=== PATIENT | female | born 1950 | race American Indian/Alaskan Native ===

== ENCOUNTER 2016-06-24 16:36 | Emergency (ER) | payer MEDICARE ==
[2016-06-24 19:12] LABS: Basophils % (Auto) 0.6 % (0.0-1.8); Eosinophils % (Auto) 3.4 % (0.0-4.3); Hematocrit 36.5 % (30.3-42.9); Hemoglobin 11.9 gm/dl (10.1-14.3); Mean Corpuscular HGB Conc 33 % (30-34); Mean Corpuscular Hemoglobin 30 pg (28-32); Mean Corpuscular Volume 91 fl (79-97); Platelet Count 173 K/mm3 (140-440); Red Blood Count 4.02 M/mm3 (3.65-5.03); Red Cell Distribution Width 15.9 % (13.2-15.2); White Blood Count 5.3 K/mm3 (4.5-11.0)
[2016-06-24 19:17] LABS: Urine Drugs of Abuse Note Disclamer
[2016-06-24 19:26] LABS: Bilirubin,Urine NEG (Negative); Blood,Urine LG (Negative); Ketones,Urine NEG (Negative); Leukocyte Esterase,Urine NEG (Negative); Mucus,Urine FEW /HPF; Nitrite,Urine NEG (Negative); Protein,Urine <15 mg/dL mg/dL (Negative); Urobilinogen,Urine < 2.0 mg/dL (<2.0)
[2016-06-24 19:31] LABS: Anion Gap 18 mmol/L; BUN/Creatinine Ratio 14.44; Blood Urea Nitrogen 13 mg/dL (7-17); Calcium 11.3 mg/dL (8.4-10.2); Carbon Dioxide 23 mmol/L (22-30); Chloride 104.7 mmol/L (98-107); Glucose 101 mg/dL (65-100); Potassium 3.3 mmol/L (3.6-5.0); Sodium 142 mmol/L (137-145)
--- NOTE | 2016-06-24 19:58 | Emergency Department Report ---
ED Psych HPI - General Chief Complaint: Psych Stated Complaint: AMS/AGGRESSION/1013 Time Seen by Provider: 06/24/16 17:56 Source: family Mode of arrival: Ambulatory Limitations: Altered Mental Status - History of Present Illness Initial Comments: 65-year-old female presents to the emergency department for mental evaluation. Per report, the patient has been physically aggressive with other people at the detention. There is no report of combative behavior or attempts to hurt herself. Further history is unable to be obtained from the patient due to her clinical condition. -: unknown History of same: Yes Quality: constant Improves With: none Worsens With: none Associated Symptoms: denies other symptoms Treatments Prior to Arrival: placed on mental he - Related Data Home Medications Medication Instructions Recorded Confirmed Last Taken Aspirin [Aspirin BABY CHEW TAB] 81 mg PO QDAY 06/21/16 06/21/16 06/21/16 Benztropine [Cogentin] 0.5 mg PO BID 06/21/16 06/21/16 06/21/16 Haloperidol [Haldol] 4 mg PO BID 06/21/16 06/21/16 06/21/16 Metoprolol Xl [Metoprolol 50 mg PO QDAY 06/21/16 06/21/16 06/21/16 SUCCINATE ER TAB] Allergies Allergy/AdvReac Type Severity Reaction Status Date / Time Sulfa (Sulfonamide Allergy Hives/RASH Unverified 11/29/14 12:12 Antibiotics) ED Review of Systems ROS: Stated complaint: AMS/AGGRESSION/1013 Other details as noted in HPI Comment: Unobtainable due to pts medical conditions ED Past Medical Hx - Past Medical History Previous Medical History?: Yes Hx Hypertension: Yes Hx Psychiatric Treatment: Yes (schizophrenia) Additional medical history: AMS - Surgical History Past Surgical History?: No - Family History Family history: no significant - Social History Smoking Status: Current Every Day Smoker Substance Use Type: Prescribed - Medications Home Medications: Home Medications Medication Instructions Recorded Confirmed Last Taken Type Aspirin [Aspirin BABY CHEW TAB] 81 mg PO QDAY 06/21/16 06/21/16 06/21/16 History Benztropine [Cogentin] 0.5 mg PO BID 06/21/16 06/21/16 06/21/16 History Haloperidol [Haldol] 4 mg PO BID 06/21/16 06/21/16 06/21/16 History Metoprolol Xl [Metoprolol 50 mg PO QDAY 06/21/16 06/21/16 06/21/16 History SUCCINATE ER TAB] ED Physical Exam - General Limitations: Altered Mental Status General appearance: alert, in no apparent distress - Head Head exam: Present: atraumatic, normocephalic - Eye Eye exam: Present: normal appearance, PERRL, EOMI - ENT ENT exam: Present: normal exam, normal orophraynx, mucous membranes moist - Neck Neck exam: Present: normal inspection, full ROM. Absent: tenderness - Respiratory Respiratory exam: Present: normal lung sounds bilaterally. Absent: respiratory distress - Cardiovascular Cardiovascular Exam: Present: normal rhythm, tachycardia, normal heart sounds - GI/Abdominal GI/Abdominal exam: Present: soft, normal bowel sounds. Absent: distended, tenderness - Extremities Exam Extremities exam: Present: normal inspection, full ROM. Absent: tenderness - Back Exam Back exam: Present: normal inspection, full ROM. Absent: tenderness - Neurological Exam Neurological exam: Present: alert. Absent: motor sensory deficit - Psychiatric Psychiatric exam: Present: agitated, other (patient appears to be responding to internal stimuli. Patient is swatting at things in the air. Patient is not able to answer questions and has difficulty following commands.) - Skin Skin exam: Present: warm, dry, intact ED Course Vital Signs 06/24/16 06/24/16 17:43 18:54 Temperature 97.6 F Pulse Rate 125 H Respiratory 20 16 Rate Blood Pressure 136/93 O2 Sat by Pulse 97 Oximetry - Reevaluation(s) Reevaluation #1: 06/24/16 19:58 Lab results reviewed. Patient has been medically cleared. Form 1013 has been signed and placed on the patient's chart. Patient is awaiting mental health placement. ED Medical Decision Making - Lab Data Result diagrams: 06/24/16 18:49 06/24/16 18:49 Critical care attestation.: If time is entered above; I have spent that time in minutes in the direct care of this critically ill patient, excluding procedure time. ED Disposition Clinical Impression: Schizophrenia Qualifiers: Schizophrenia type: unspecified Qualified Code(s): F20.9 - Schizophrenia, unspecified Disposition: DC/TX PSY HOSP/PSY UNIT Is pt being admited?: No Condition: Stable Referrals: PRIMARY CARE [Primary Care Provider] - 3-5 Days Time of Disposition: 19:58
[2016-06-25 06:28] VITALS: BP 140/92
[2016-06-25] MEDS ORDERED: HALDOL IM ONE (15:07)
[2016-06-25] MEDS ORDERED: BENADRYL IM ONE (15:08)
[2016-06-25] MEDS ORDERED: ATIVAN IM ONE (15:13)
== END 2016-06-25 20:59 ==
LOC: ED 16:36 → EEVIPCON 16:36 → ED 06-25 20:59
DX: F20.9 Schizophrenia, unspecified (principal); I10 Essential (primary) hypertension; F17.200 Nicotine dependence, unspecified, uncomplicated; Z88.2 Allergy status to sulfonamides
CPT/HCPCS: 36415; 80048; 80307; 81001; 85025; 96372; 99285; G0480; J1200; J1630; J2060; 80320

== ENCOUNTER 2016-09-17 21:23 | Emergency (ER) | payer MEDICARE ==
--- NOTE | 2016-09-17 22:16 | Emergency Department Report ---
HPI - General Chief Complaint: Psych Time Seen by Provider: 09/17/16 22:07 - HPI HPI: This is a 66-year-old female who presents to the emergency department by EMS from a personal nursing home with the need for a mental health evaluation. The architectural project manager had been saying that the patient had become belligerent, was refusing to take her medications and has been eloping from the facility. The patient has a history of schizophrenia and hypertension. When asked how the patient got to the emergency department this evening, the patient says that she "drove." When asked her name, she gave other names. Some of the things that she says is unintelligible and the patient has some pressured speech. Just prior to my examination of the patient, the patient took off her diaper filled with feces, throat onto the ground, and started stomping on it. ED Past Medical Hx - Past Medical History Previous Medical History?: Yes Hx Hypertension: Yes Hx Psychiatric Treatment: Yes (schizophrenia) Additional medical history: AMS - Surgical History Past Surgical History?: No - Social History Smoking Status: Unknown if ever smoked - Medications Home Medications: Home Medications Medication Instructions Recorded Confirmed Last Taken Type Unobtainable 09/17/16 09/17/16 Unknown History ED Review of Systems ROS: Stated complaint: MH EVAL/AMS Other details as noted in HPI Comment: Unobtainable due to pts medical conditions Physical Exam - Physical Exam Vital Signs: Vital Signs 09/17/16 22:07 Pulse Rate 65 Respiratory 20 Rate Physical Exam: GENERAL: The patient is well-developed well-nourished. HEENT: Normocephalic. Atraumatic. Extraocular motions are intact. Patient has moist mucous membranes. Pupils equal reactive to light bilaterally. NECK: Supple. Trachea is midline. CHEST/LUNGS: Clear to auscultation. There is no respiratory distress noted. HEART/CARDIOVASCULAR: Regular. There is no tachycardia. There is no gallop rub or murmur. ABDOMEN: Abdomen is soft, nontender. Patient has normal bowel sounds. There is no abdominal distention. SKIN: Skin is warm and dry. NEURO: Patient is awake but unable to assess patient's orientation secondary to her psychosis. Withdraws to painful stimuli. MUSCULOSKELETAL: There is no tenderness or deformity. There is no limitation range of motion. There is no evidence of acute injury. ED Course Vital Signs 09/17/16 22:07 Pulse Rate 65 Respiratory 20 Rate ED Medical Decision Making - Lab Data Result diagrams: 09/17/16 23:13 09/17/16 23:13 - Medical Decision Making 66-year-old female presents from her personal nursing home with need for a psychiatric evaluation as the patient has been altered and aggressive. Patient displays psychosis here. The patient is mostly unintelligible, uncooperative. At one point the patient through a feces filled diaper on the ground and began stomping on it despite ER staff pleas for her to stop. Vital signs stable throughout her ED course. Labs are unremarkable do not show any etiology of the patient's symptoms. She has a history of schizophrenia and this appears to be a psychotic break through. She has been admitted 1013 for this reason. She is medically clear for psychiatric placement. - Differential Diagnosis schizophrenia, schizoaffective, bipolar disorder, depression, substance abu Critical Care Time: No Critical care attestation.: If time is entered above; I have spent that time in minutes in the direct care of this critically ill patient, excluding procedure time. ED Disposition Clinical Impression: Schizophrenia Qualifiers: Schizophrenia type: unspecified Qualified Code(s): F20.9 - Schizophrenia, unspecified Psychosis Qualifiers: Psychosis type: unspecified psychosis type Qualified Code(s): F29 - Unspecified psychosis not due to a substance or known physiological condition Disposition: DC/TX PSY HOSP/PSY UNIT Is pt being admited?: No Condition: Stable Time of Disposition: 00:22
[2016-09-17 22:53] LABS: Urine Drugs of Abuse Note Disclamer
[2016-09-17 23:09] LABS: Bilirubin,Urine NEG (Negative); Blood,Urine SM (Negative); Ketones,Urine NEG (Negative); Leukocyte Esterase,Urine SM (Negative); Nitrite,Urine NEG (Negative); Protein,Urine <15 mg/dL mg/dL (Negative); Urobilinogen,Urine < 2.0 mg/dL (<2.0)
[2016-09-17 23:42] LABS: Basophils % (Auto) 0.6 % (0.0-1.8); Eosinophils % (Auto) 1.6 % (0.0-4.3); Hematocrit 34.7 % (30.3-42.9); Hemoglobin 11.6 gm/dl (10.1-14.3); Mean Corpuscular HGB Conc 33 % (30-34); Mean Corpuscular Hemoglobin 31 pg (28-32); Mean Corpuscular Volume 92 fl (79-97); Platelet Count 193 K/mm3 (140-440); Red Blood Count 3.76 M/mm3 (3.65-5.03); Red Cell Distribution Width 15.4 % (13.2-15.2); White Blood Count 6.4 K/mm3 (4.5-11.0)
[2016-09-17 23:45] LABS: Anion Gap 14 mmol/L; Blood Urea Nitrogen 17 mg/dL (7-17); Calcium 11.7 mg/dL (8.4-10.2); Carbon Dioxide 28 mmol/L (22-30); Chloride 104.7 mmol/L (98-107); Glucose 106 mg/dL (65-100); Potassium 4.1 mmol/L (3.6-5.0); Sodium 143 mmol/L (137-145)
--- NOTE | 2016-09-18 11:38 | Consultation ---
History of Present Illness - Reason for Consult Consult date: 09/18/16 Reason for consult: psychiatric evaluation - Chief Complaint Chief complaint: "I'm a doctor" 66 year old black female seen in the ER for psychiatric evaluation. She was brought to the ER by ambulance from her personal halfway for being increasingly uncooperative and refusing medications. On exam she is tangential, speech is incoherent. She laughs intermittently and then will stare in a threatening manner. She is clearly responding to internal stimuli. She was unable to provided history except to say she has schizophrenia. From the previous records in the ER, she was taking haldol 4mg bid and cogentin. She urinated on the floor following the completion of the interview. Unable to determine additional history. Medications and Allergies Allergies Allergy/AdvReac Type Severity Reaction Status Date / Time Sulfa (Sulfonamide Allergy Hives/RASH Unverified 11/29/14 12:12 Antibiotics) Home Medications Medication Instructions Recorded Confirmed Last Taken Type Unobtainable 09/17/16 09/17/16 Unknown History Past psychiatric history - Past Medical History Past Medical History: other (unk) Past Surgical History: Other (unk) - past Psychiatric treatment and history Psych: Schizophrenia - Social History Social history: other (long-term or personal halfway) Mental Status Exam - Vital signs Last Vital Signs Temp 97.6 F 09/18/16 08:33 Pulse 85 09/18/16 08:33 Resp 16 09/18/16 08:33 BP 143/93 09/18/16 08:33 Pulse Ox 98 09/18/16 08:33 - Exam Orientation: person Affect: agitated (and labile) Mood: congruent with affect Thought content: other (responding to internal stimuli) Thought Process: Tangential, Disorganized Speech: incoherent Concentration: unable to pay attention Motor activity: restless Level of consciousness: alert Interaction: other (indifferent) Results Result Diagrams: 09/17/16 23:13 09/17/16 23:13 Abnormal lab results 09/17/16 09/17/16 09/17/16 Range/Units 23:13 23:13 23:13 RDW 15.4 H (13.2-15.2) % Lymph # 0.9 L (1.2-5.4) K/mm3 Seg Neutrophils % 77.0 H (40.0-70.0) % Glucose 106 H (65-100) mg/dL Calcium 11.7 H (8.4-10.2) mg/dL Salicylates < 0.3 L (2.8-20.0) mg/dL All other labs normal. 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
[2016-09-18] MEDS: HALDOL PO SCH (22:46)
[2016-09-18] MEDS: COGENTIN PO SCH (22:46)
--- NOTE | 2016-09-19 09:21 | Progress Note ---
Subjective - Reason for Consult Consult date: 09/19/16 Reason for consult: Psychiatry Follow-up - Chief Complaint Chief complaint: "I'm a " 66 year old black female seen in the ER for psychiatric evaluation. She was brought to the ER by ambulance from her personal [facility] for being increasingly uncooperative and refusing medications. Today patient is tangential , delusional with pressured speech. I had to redirect patient multiple times, because she would stare at the wall. Once I got her attention, she stated that she is "." During the assessment she mentioned residing at a personal [facility] multiple times. She continues to laughs intermittently per a previous note. Patient is a poor historian at this time. Mental Status Exam - Vital signs Last Vital Signs Temp 98.7 F 09/18/16 20:41 Pulse 84 09/18/16 20:41 Resp 16 09/18/16 20:41 BP 129/77 09/18/16 20:41 Pulse Ox 98 09/18/16 20:41 - Exam Narrative exam: MSE: Appearance: Disheveled, cooperative Behavior: good eye contact Speech: regular rate and tone, pressured Mood: "I am okay now" Affect: elated Thought Process: tangential Thought Content: no gestures of SI/HI's and AVH's, delusional Motor Activity: lying down Cognition: a/o x2 Insight: poor Judgment: poor Assessment and Plan Impression: 66 year old black female seen in the ER for psychiatric evaluation. She was brought to the ER by ambulance from her personal [facility] for being increasingly uncooperative and refusing medications. Today patient is tangential , delusional with pressured speech. I had to redirect patient multiple times, because she would stare at the wall. No gestures of SI/HI's and AVH's. Patient refused her psy medication last night. Recommendation/Plan: Continue 1013 with placement to inpatient psy services. Continue Haldol 5 mg PO HS for psychosis and Cogentin 0.5 mg PO HS for EPS prevention.
[2016-09-19] MEDS: COGENTIN PO SCH (22:57)
[2016-09-19] MEDS: HALDOL PO SCH (22:57)
--- NOTE | 2016-09-20 13:12 | Progress Note ---
Subjective - Reason for Consult Consult date: 09/20/16 Reason for consult: psychiatric follow up - Chief Complaint Chief complaint: "I'm a " 66 year old black female seen in the ER for psychiatric evaluation. She was brought to the ER by ambulance from her personal senior living for being increasingly uncooperative and refusing medications. Staff report no episodes of aggression. She expressed multiple delusions, including being 5 months , being a doctor, and was preoccupied in asking "Are you a advent?" She took haldol/cogentin last night as ordered. 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
[2016-09-20] MEDS: HALDOL PO SCH (22:04)
[2016-09-20] MEDS: COGENTIN PO SCH (22:05)
[2016-09-21 11:42] VITALS: BP 132/86
== END 2016-09-21 11:30 ==
LOC: EEVIPCON 21:23 → ED 21:23
DX: F20.9 Schizophrenia, unspecified (principal); F29 Unspecified psychosis not due to a substance or known physiological condition; I10 Essential (primary) hypertension
CPT/HCPCS: 36415; 80048; 80307; 81001; 85025; 99285; G0480; 80320

== ENCOUNTER 2018-06-08 16:35 | Inpatient (IN) | payer MEDICARE, MEDICAID ==
[2018-06-08] MEDS ORDERED: ATIVAN IM PRN (19:11)
[2018-06-08] MEDS ORDERED: GEODON IM PRN (19:13)
[2018-06-08] MEDS ORDERED: DESYREL PO PRN (19:19)
[2018-06-08] MEDS: COGENTIN PO SCH (21:46)
[2018-06-08] MEDS: HALDOL PO SCH (21:46)
[2018-06-09 01:44] LABS: Calcium 10.5 mg/dL (8.4-10.2)
[2018-06-09] MEDS ORDERED: HABITROL TD SCH (10:00)
[2018-06-09] MEDS ORDERED: AFLURIA QUAD 2018-2019 SYRINGE IM ONE (12:00)
--- NOTE | 2018-06-09 12:45 | History and Physical Report ---
History of Present Illness Date of examination: 06/09/18 Date of admission: 06/08/18 17:01 Chief complaint: AMS History of present illness: Patient is a 67 yo woman [facility] with a history of metastatic left breast cancer, schizophrenia, hypercalcemia and tobacco dependency who initially presented to [facility] ED via police on 06/08/2018 after she was allegedly found wandering around on the street. She tells me that she was going to get cigarettes but is unable to give me any other history without speaking on a tangent. Her thoughts are disorganized. The patient has been seen here in the past secondary to acute psychosis from schizophrenia. She has been admitted to our [facility] unit and Hospitalist were called for Admission Medical H-n-P. PMH: as hpi PSH: unable to obtain due to AMS SH: tobacco smoker FH: unable to obtain due to AMS ROS: unable to obtain due to AMS Medications and Allergies Allergies Allergy/AdvReac Type Severity Reaction Status Date / Time Sulfa (Sulfonamide Allergy Hives/RASH Unverified 11/29/14 12:12 Antibiotics) Home Medications Medication Instructions Recorded Confirmed Last Taken Type Unobtainable 09/17/16 09/17/16 Unknown History Active Meds: Active Medications Benztropine Mesylate (Cogentin) 0.5 mg PO QHS [facility] Last Admin: 06/08/18 21:46 Dose: 0.5 mg Documented by: Haloperidol (Haldol) 5 mg PO QHS [facility] Last Admin: 06/08/18 21:46 Dose: 5 mg Documented by: Lorazepam (Ativan) 0.5 mg IM Q4H PRN PRN Reason: Anxiety Nicotine (Habitrol) 14 mg TD QDAY [facility] Trazodone HCl (Desyrel) 50 mg PO QHS PRN PRN Reason: Insomnia Ziprasidone (Geodon) 20 mg IM Q6H PRN PRN Reason: Agitation Exam - Physical Exam Narrative exam: Gen: WDWN, NAD, Awake, Alert, Orientated x 1 HEENT: NCAT, EOMI, PERRL, OP Clear with no teeth Neck: supple, adenopathy, no thyromegaly, no JVD CVS/Heart: RRR, normal S1S2, pulses present bilaterally Chest/Lungs: diminished bs bilateral, Symmetrical chest expansion, good air entry bilaterally GI/Abdomen: soft, NTND, good bowel sounds, no guarding or rebound /Bladder: no suprapubic tenderness, no CVA or paraspinal tenderness Extermity/Skin: no c/c/e, no obvious rash MSK: FROM x 4 Neuro: CN 2-12 grossly intact, no new focal deficits Psych: calm but confused, tangential and Disorganized - Constitutional Vitals: Temp Pulse Resp BP Pulse Ox 98.6 F 84 20 127/74 97 06/09/18 05:54 06/09/18 05:54 06/09/18 05:54 06/09/18 05:54 06/09/18 05:54 Results - Labs CBC & Chem 7: 06/09/18 00:45 Labs: Abnormal lab results 06/09/18 Range/Units 00:45 BUN 22 H (7-17) mg/dL Glucose 105 H (65-100) mg/dL Calcium 10.5 H (8.4-10.2) mg/dL Assessment and Plan Medical H-n-P Patient is a 67 yo woman from a [facility] with a history of metastatic left breast cancer, schizophrenia, hypercalcemia and tobacco dependency who initially presented to [facility] ED via police on 06/08/2018 after she was allegedly found wandering around on the street. She tells me that she was going to get cigarettes but is unable to give me any other history without speaking on a tangent. Her thoughts are disorganized. The patient has been seen here in the past secondary to acute psychosis from schizophrenia. She has been admitted to our [facility] unit and Hospitalist were called for Admission Medical H-n-P. * 11/29/2014 2D ECHO Conclusion: Well-preserved left ventricular systolic function, ejection fraction 55%, at least mild concentric LVH, moderate MR, mild to moderated AR, mild TR. * 11/30/[address] neck, chest, abd and pelvis and PET scan per Dr. MENDEZ ([place]): Multifocal Left Breast Cancer with suspicious left a xillary, left subpectoral and left superior mediastinal lymph node, small bilateral pleural effusion but no evidence for pulmonary nodule or pleural based mass, bilateral nephrolithiasis and increase uptake in the bilateral parotid glands and left gluteal region but I suspect thesea are not related to metastatic breast cancer per Dr. 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 MENDEZ, he will ask his office for prior history Hypercalcemia, mild due to breast cancer
[2018-06-09] MEDS: HABITROL TD SCH (13:34)
--- NOTE | 2018-06-09 15:26 | History and Physical Report ---
GP History & Physical - History of Present Illness Date of admission: 06/08/18 Date of Examination: 06/09/18 Reason for Admission: Impaired reality testing, Failure of Outpatient Treatment, Unable to care for self Chief Complaint: "I DON'T KNOW History of Present Illness: This is a 67-year-old -[place] female she was admitted on 06/08/2018 after she was found pretty confused and disorganized. patient apparently has a history of schizophrenia and she has been noncompliant with treatment. she was found very psychotic with delusional thought processes and she was deemed un able to provide clear to herself because of her psychotic thought processes .patient apparently has a long history of schizophrenia and she apparently is noncompliant with the treatment she seems to have decompensated and she has not been able to provide care to self because of her distorted disorganized thought process and is clearly seems to be needs of inpatient hospitalization and stabilization Legal Status: Involuntary (1013) Reaction to Hospitalization: Accepting (patient is agreed to treatment) Results - Results Labs/Vitals: Laboratory Last Values Sodium 139 mmol/L (137-145) 06/09/18 00:45 Potassium 3.8 mmol/L (3.6-5.0) 06/09/18 00:45 Chloride 102.1 mmol/L (98-107) 06/09/18 00:45 Carbon Dioxide 28 mmol/L (22-30) 06/09/18 00:45 Anion Gap 13 mmol/L 06/09/18 00:45 BUN 22 mg/dL (7-17) H 06/09/18 00:45 Creatinine 1.2 mg/dL (0.7-1.2) 06/09/18 00:45 Estimated GFR 54 ml/min 06/09/18 00:45 BUN/Creatinine Ratio 18 % 06/09/18 00:45 Glucose 105 mg/dL (65-100) H 06/09/18 00:45 Calcium 10.5 mg/dL (8.4-10.2) H 06/09/18 00:45 Vitamin B12 294.9 pg/mL (211-911) 06/09/18 00:45 Last Vital Signs Temp 98.6 F 06/09/18 05:54 Pulse 84 06/09/18 05:54 Resp 20 06/09/18 05:54 BP 127/74 06/09/18 05:54 Pulse Ox 97 06/09/18 05:54 Physical Examination - Constitutional Vitals: Vital Signs Temp Pulse Resp BP Pulse Ox 98.6 F 84 20 127/74 97 06/09/18 05:54 06/09/18 05:54 06/09/18 05:54 06/09/18 05:54 06/09/18 05:54 Temperature -Last 24 Hours Temperature 98.6 F Mental Status Exam - Vital signs Last Vital Signs Temp 98.6 F 06/09/18 05:54 Pulse 84 06/09/18 05:54 Resp 20 06/09/18 05:54 BP 127/74 06/09/18 05:54 Pulse Ox 97 06/09/18 05:54 Physician Certification - Certification Statement Physician Certification Statement: This is an acknowledgement statement that MARLYN BUTCHER is a 67 year old F who requires inpatient psychiatric admission for treatment which could reasonably be expected to improve the patient's condition for Estimated period of time patient will need to remain in the hospital: [ ] Plan for post-hospital care: [ ]
[2018-06-09] MEDS ORDERED: BABY ASPIRIN PO ONE (17:00)
[2018-06-09] MEDS: HALDOL PO SCH (21:13)
[2018-06-09] MEDS: ARICEPT PO SCH (21:13)
[2018-06-09] MEDS: COGENTIN PO SCH (21:13)
[2018-06-09] MEDS: COLACE PO SCH (21:13)
[2018-06-10] MEDS: NORVASC PO SCH (10:22)
[2018-06-10] MEDS: COLACE PO SCH ×2 (10:22→21:53)
[2018-06-10] MEDS: LOPRESSOR PO SCH (10:24)
[2018-06-10] MEDS: HABITROL TD SCH (12:26)
[2018-06-10] MEDS ORDERED: BABY ASPIRIN PO ONE (17:15)
[2018-06-10] MEDS: HALDOL PO SCH (21:53)
[2018-06-10] MEDS: ARICEPT PO SCH (21:53)
[2018-06-10] MEDS: COGENTIN PO SCH (21:53)
[2018-06-11] MEDS: NORVASC PO SCH (10:44)
[2018-06-11] MEDS: LOPRESSOR PO SCH (10:45)
[2018-06-11] MEDS: COLACE PO SCH ×2 (10:45→21:49)
[2018-06-11] MEDS: HABITROL TD SCH (10:47)
--- NOTE | 2018-06-11 17:20 | Progress Note ---
Subjective Date of service: 06/11/18 Principal diagnosis: schizophrenia Subjective Comment: This is Dr. Cristina and this is the daily progress note on patient's name Shima Schmidt.Today's progress note is off 06/10/2018.patient seen today and case discussed with staff.patient is getting increasingly agitated and irritable and because she wants to smoke she refused to take the nicotine patch. Patient also refusing to take any kind of injectable medications .It was reported to us by her caregiver that patient needs INVEGA Sustaina injection and it's a time for her for that ingestion but patient is refusing to take that injection or any other psychotropic medications injection patient was reeducated and encouraged her to comply with the treatment. Mental status examination patient is superficially cooperative her affect is constricted and mood is dysphoric C she is still very much delusional and she again told me that she is Citizen [place] woman and she owns lots of complaints she denies hallucinations but at times she seems responding to internal stimuli when I ask her about her suicidal thoughts she started talking about the of her daughter and the blurred and all the scene of the accident which she was not able to elaborate any further. She also told me that she was adopted. Her thought processes shows that she is still somewhat distorted in her thinking her reality testing is impaired. She denies any suicidal intent or plan her judgment and insight is very very limited Current medications. She is currently taking Haldol 5 mg at night and she also takes some Cogentin 0.5 mg at night EXAMINATION I also noted that she has some resting tremors and both of her hands shows the patient has resting sort of tremors she doesn't have a stiff gait stiffness of gait or she doesn't have any facial masking but the resting tremors are pretty much consistent with possibility of tardive dyskinesia. Patient was educated about that I have encouraged the patient is to comply with the treatment recommendations we'll recommend patient is to continue to have inpatient hospitalization we will also investigate for Invega Sustenna injection which is due now to see if it is available so we can administered that medications.
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
[2018-06-11] MEDS: HALDOL PO SCH (21:49)
[2018-06-11] MEDS: COGENTIN PO SCH (21:50)
[2018-06-11] MEDS: ARICEPT PO SCH (22:30)
[2018-06-12] MEDS: NORVASC PO SCH (10:27)
[2018-06-12] MEDS: COLACE PO SCH ×2 (10:27→21:46)
[2018-06-12] MEDS: LOPRESSOR PO SCH (10:33)
[2018-06-12] MEDS: HABITROL TD SCH (13:04)
--- NOTE | 2018-06-12 15:31 | Progress Note ---
Subjective Date of service: 06/12/18 Principal diagnosis: schizophrenia Subjective Comment: This is the daily progress note on patient's name Shima Schmidt patient seen today and case discussed with staff. patient seen in the day room she is still very much paranoid withdrawn and irritable and easily distracted. Patient was asked about her feelings and she started talking about her past but in a very disorganized manner.she had difficulty focusing and at one point she told me that she would not take the Haldol because she believes that she is " "" Patient is still very paranoid very much withdrawn easily irritated rambling thoughts and her judgment and insight seems very limited Mental status examination patient is alert and oriented times times three. she is oriented to month and the year but she is not oriented to exact date concentration is fair to poor memory:she has some trouble with recall, but overall her memory seems grossly intact judgment and insight is very limited she denies auditory or visual hallucinations but at times she was seen talking to herself. Patient denies any suicidal or homicidal ideation. Patient is still anxious paranoid and having psychotic symptoms. Plan:plan for the patient is to continue with inpatient treatment I will also recommend increasing the dose of Haldol from 5 mg daily at bedtime to 5 mg twice a day and we will also increase the dose of Cogentin 2.5 mg twice a day
[2018-06-12] MEDS: COGENTIN PO SCH (21:45)
[2018-06-12] MEDS: ARICEPT PO SCH (22:06)
[2018-06-13] MEDS: HALDOL PO SCH ×3 (07:55→21:10)
[2018-06-13] MEDS: COLACE PO SCH ×2 (10:30→21:10)
[2018-06-13] MEDS: LOPRESSOR PO SCH (10:31)
[2018-06-13] MEDS: HABITROL TD SCH (10:34)
[2018-06-13] MEDS: COGENTIN PO SCH ×2 (10:35→21:10)
[2018-06-13] MEDS: NORVASC PO SCH (10:35)
[2018-06-13] MEDS: ARICEPT PO SCH (21:09)
[2018-06-14] MEDS: HALDOL PO SCH ×2 (10:25→21:26)
[2018-06-14] MEDS: COLACE PO SCH ×2 (10:26→21:25)
[2018-06-14] MEDS: COGENTIN PO SCH ×2 (10:26→21:26)
[2018-06-14] MEDS: NORVASC PO SCH (10:27)
[2018-06-14] MEDS: LOPRESSOR PO SCH (10:28)
[2018-06-14] MEDS: HABITROL TD SCH (10:29)
[2018-06-14] MEDS: ARICEPT PO SCH (21:25)
[2018-06-15] MEDS ORDERED: INVEGA SUSTENNA 156 MG IM ONE (10:00)
[2018-06-15] MEDS: HABITROL TD SCH (11:20)
[2018-06-15] MEDS: LOPRESSOR PO SCH (15:04)
[2018-06-15] MEDS: COGENTIN PO SCH ×2 (15:04→21:26)
[2018-06-15] MEDS: COLACE PO SCH ×2 (15:04→21:26)
[2018-06-15] MEDS: NORVASC PO SCH (15:06)
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
[2018-06-15] MEDS: HALDOL PO SCH ×2 (15:34→21:26)
[2018-06-15] MEDS: ARICEPT PO SCH (21:26)
[2018-06-16] MEDS: COLACE PO SCH ×2 (10:24→21:16)
[2018-06-16] MEDS: HALDOL PO SCH ×2 (10:24→21:16)
[2018-06-16] MEDS: NORVASC PO SCH (10:25)
[2018-06-16] MEDS: LOPRESSOR PO SCH (10:26)
[2018-06-16] MEDS: COGENTIN PO SCH ×2 (10:27→21:15)
[2018-06-16] MEDS: HABITROL TD SCH (10:30)
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
[2018-06-16] MEDS: ARICEPT PO SCH (21:16)
[2018-06-17] MEDS: COGENTIN PO SCH ×2 (11:25→12:58)
[2018-06-17] MEDS: COLACE PO SCH ×2 (11:25→12:58)
[2018-06-17] MEDS: HABITROL TD SCH (11:27)
[2018-06-17] MEDS: HALDOL PO SCH (11:28)
[2018-06-17] MEDS: LOPRESSOR PO SCH ×2 (11:28→12:58)
[2018-06-17] MEDS: NORVASC PO SCH ×2 (11:29→12:59)
--- NOTE | 2018-06-17 17:02 | Progress Note ---
Subjective Date of service: 06/17/18 Principal diagnosis: schizophrenia Subjective Comment: This is DrBoston and and this is the progress note on patient's name MARLYN Schmidt. Patient seen today and case discussed with staff. Patient was seen in the dining area. Patient is grossly asymptomatic but she still seems to have distorted and delusional thinking pattern. 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 Mental status examination : patient is alert and oriented 3 and concentration is fair memory is grossly intact but she does have difficulties with recalling and she was not aware of the exact date she thought that it was May 2018 patient denies any auditory or visual hallucination but at times she seems responding to internal stimuli as she was seen talking to SELF. Patient denies any suicidal or homicidal ideations. As mentioned. Patient's thinking is still somewhat delusional and her reality testing is still impaired. Plan: plan for the patient is to continue the current treatment patient denies any side effects from the medications. She denies any destructive thoughts. Patient seems somewhat lethargic but she denies feeling tired or fatigued. She was wondering about her discharge and patient was reeducated about her treatment and the possibility of the discharge date
[2018-06-18] MEDS: COGENTIN PO SCH ×3 (06:23→21:57)
[2018-06-18] MEDS: COLACE PO SCH ×3 (06:23→21:56)
[2018-06-18] MEDS: ARICEPT PO SCH ×2 (06:23→21:57)
[2018-06-18] MEDS: HALDOL PO SCH ×2 (06:28→14:17)
[2018-06-18] MEDS: LOPRESSOR PO SCH (14:13)
[2018-06-18] MEDS: NORVASC PO SCH (14:14)
[2018-06-18] MEDS: HABITROL TD SCH (14:21)
--- NOTE | 2018-06-18 17:23 | Progress Note ---
Subjective Date of service: 06/18/18 Principal diagnosis: schizophrenia Subjective Comment: This is the daily progress note on patient's name Shima Schmidt. Patient seen today and case is discussed with the staff. It is reported that patient was very irritable and angry and dysphoric this morning she was refusing to even have the vital signs taken.she was upset because she was not allowed to smoke here patient apparently has been craving for the nicotine really bad but at the same time she is refusing to be on nicotine patch.she says nicotine patch will give her cancer. Patient was seen today. she is alert and superficially cooperative. She is still somewhat evasive and tangential. During the conversation with her, she told me that she had a baby by her cancer doctor. Patient DO have some delusional thought patterns. Is not clear if this is her baseline.patient denies any active destructive thoughts. Mental status examination:patient is alert and oriented 3 concentration is fair memory is grossly intact but she does have difficulties recalling the recent events .she denies any active auditory or visual hallucination she denies any suicidal or homicidal ideations. She is still have delusional thought patterns but denies any destructive thoughts. She is tolerating her medications well she denies side effects from medications but often she refused to take Haldol patient was reeducated and encouraged to comply with treatment Plan: plan for the patient is to continue the current treatment patient. Patient already has got the Invega Sustenna and she will continue to get the Invega Sustenna at least once a month we will discuss the discharge plan for this patient. We'll have social worker delinquency prevention to contact patient and caregiver and will initiate the discharge possibility of discharge patient's to the [facility] tomorrow
[2018-06-19] MEDS: HALDOL PO SCH ×2 (06:12→09:38)
[2018-06-19 08:54] VITALS: BP 149/80
[2018-06-19] MEDS: COLACE PO SCH (09:37)
[2018-06-19] MEDS: LOPRESSOR PO SCH (09:37)
[2018-06-19] MEDS: COGENTIN PO SCH (09:37)
[2018-06-19] MEDS: NORVASC PO SCH (09:37)
[2018-06-19] MEDS: HABITROL TD SCH (09:38)
--- NOTE | 2018-06-19 16:17 | Discharge Summary ---
Providers - Providers Date of Admission: 06/08/18 17:01 This is the discharge summary on patient's name Shima Schmidt. patient seen today and case discussed with the staff. Patient was notified about her discharge yesterday and be notified her again today. Patient is still very paranoid and gets easily agitated but she is redirectable. Patient is still somewhat delusional about having babies in the house but she denies any active hallucinations and she denies any destructive thoughts. Mental status examination patient is alert and oriented 3 concentration is fair. she does have some memory problems with recalling especially with the immediate recall and 3 words recall in 5 minutes is no more than 2 out of 3. Otherwise, she is alert and well oriented. she denies any active auditory or visual hallucinations and denies any suicidal or homicidal ideations her mood is still anxious labile and dysphoric and easily irritable but all in all she denies any destructive thoughts and easily redirectable. Plan for the patient is to discharge her home with the recommendation that she would continue the Invega Sustenna 156 mg IM every month. patient has taken the first shot of Invega Sustenna here in the hospital and she has agreed to comply with taking of subsequent doses On an outpatient basis. Patient continued to refuse to take Haldol which has also been given to her. patient was urged to comply with the oral medications as well. Thank you Date of discharge: 06/19/18 Attending physician: CISCO OWUSU MD 06/08/18 17:30 Consult to Physician [CONS] Routine Comment: Consulting Provider: UNA BEY Physician Instructions: Reason For Exam: H&P Primary care physician: SHERRY THRASHER Hospitalization Reason for admission: psychosis Condition: Fair Disposition: DC/[place]-06 HOME UNDER HOME [facility] Allergies/Adverse Reactions: Allergies Sulfa (Sulfonamide Antibiotics) Allergy (Verified 06/17/18 10:51) Hives/RASH Vital Signs: Last Vital Signs Temp 98.0 F 06/19/18 08:44 Pulse 78 06/19/18 09:37 Resp 20 06/19/18 08:44 BP 149/80 06/19/18 09:37 Pulse Ox 98 06/19/18 08:42 Last Lab: Laboratory Last Values Sodium 139 mmol/L (137-145) 06/09/18 00:45 Potassium 3.8 mmol/L (3.6-5.0) 06/09/18 00:45 Chloride 102.1 mmol/L (98-107) 06/09/18 00:45 Carbon Dioxide 28 mmol/L (22-30) 06/09/18 00:45 Anion Gap 13 mmol/L 06/09/18 00:45 BUN 22 mg/dL (7-17) H 06/09/18 00:45 Creatinine 1.2 mg/dL (0.7-1.2) 06/09/18 00:45 Estimated GFR 54 ml/min 06/09/18 00:45 BUN/Creatinine Ratio 18 % 06/09/18 00:45 Glucose 105 mg/dL (65-100) H 06/09/18 00:45 Calcium 10.5 mg/dL (8.4-10.2) H 06/09/18 00:45 Vitamin B12 294.9 pg/mL (211-911) 06/09/18 00:45 RBC Folic Acid 780 ng/mL (>280) 06/09/18 00:45 Core Measure Documentation - Palliative Care Palliative Care/ Comfort Measures: Not Applicable - Core Measures Any of the following diagnoses?: none Exam - Constitutional Vitals: Temp Pulse Resp BP Pulse Ox 98.0 F 78 20 149/80 98 06/19/18 08:44 06/19/18 09:37 06/19/18 08:44 06/19/18 09:37 06/19/18 08:42 Plan Follow up with: SHERRY THRASHER MD [Primary Care Provider] - 7 Days Forms: Discharge Signature Page
== END 2018-06-19 17:30 | disposition home or self-care (01) | DRG 885 ==
LOC: UNDOADMIN 16:35 → 3A 16:35 → 5A 17:01
PROVIDERS: ADMIT Specialist; ATTEND Specialist
DX: F23 Brief psychotic disorder (principal); E83.52 Hypercalcemia; F17.200 Nicotine dependence, unspecified, uncomplicated; Z88.2 Allergy status to sulfonamides; Z85.3 Personal history of malignant neoplasm of breast; Z71.6 Tobacco abuse counseling
CPT/HCPCS: 36415; 80048; 80307; 80320; 81001; 82607; 82747; 85025; 90471; 90686; 99285; G0378; G0008; G0480